=== PATIENT | female | born 1935 | race Caucasian/White ===

== ENCOUNTER → 2019-03-17 | Outpatient (CLI) | payer MEDICARE, BC ==
--- NOTE | 2019-03-17 12:03 | US ---
EXAMINATION TYPE: US venous doppler duplex LE DATE OF EXAM: 03/17/2019 10:35 AM COMPARISON: NONE CLINICAL HISTORY: M16.0 OSTEOARTHRITIS OF HIP, I80.9 PHLEBITIS AND THROMBOPHLE. SIDE PERFORMED: Bilateral TECHNIQUE: The lower extremity deep venous system is examined utilizing real time linear array sonog antonia with graded compression, doppler sonography and color-flow sonography. VESSELS IMAGED: External Iliac Vein (EIV) Common Femoral Vein Deep Femoral Vein Greater Saphenous Vein * Femoral Vein Popliteal Vein Small Saphenous Vein * Proximal Calf Veins (* superficial vessels) Grayscale, color doppler, spectral doppler imaging performed of the deep veins of the lower extremiti es. There is normal flow, compressibility, vascular waveforms. Right Leg: Negative for DVT Left Leg: Negative for DVT GSV and PTV also scanned per order. IMPRESSION: No sonographic evidence of deep venous thrombosis nor superficial venous thrombosis withi n either lower extremity.
== END | disposition home or self-care (01) ==
LOC: RADUSWWP 09:53
PROVIDERS: ATTEND Physical Medicine & Rehabilitation
DX: M48.062 Spinal stenosis, lumbar region with neurogenic claudication (principal); M51.16 Intervertebral disc disorders with radiculopathy, lumbar region; M43.16 Spondylolisthesis, lumbar region; M47.817 Spondylosis without myelopathy or radiculopathy, lumbosacral region; M16.0 Bilateral primary osteoarthritis of hip; M70.62 Trochanteric bursitis, left hip; I80.9 Phlebitis and thrombophlebitis of unspecified site; Z87.19 Personal history of other diseases of the digestive system
CPT/HCPCS: 93970

== ENCOUNTER → 2021-06-07 | Outpatient (CLI) | payer MEDICARE, BC ==
[2021-06-07 10:21] VITALS: BP 138/83; PULSE 65; RESP 18; TEMP 98.3
== END ==
LOC: PNWHC3 09:25
DX: Z53.9 Procedure and treatment not carried out, unspecified reason (principal)
CPT/HCPCS: 99211

== ENCOUNTER 2021-07-07 12:02 | Day surgery (SDC) | payer MEDICARE, BC ==
[2021-07-06 14:40] VITALS: BMI 22.8
[~2021-07-07 12:02] MED LIST: LACTATED RINGERS 1,000 ML IV SCH
[2021-07-07 12:21] VITALS: TEMP 98.3
[2021-07-07] MEDS ORDERED: LACTATED RINGERS 1,000 ML IV ONE (12:21)
[2021-07-07] MEDS ORDERED: fentaNYL (PF) 50 MCG/ML 2 ML AMP ONE (12:32)
[2021-07-07] MEDS ORDERED: MIDAZOLAM 2 MG/2 ML VIAL ONE (12:32)
[2021-07-07] MEDS ORDERED: methylPREDNISolone ACETATE 40 MG/ML 1 ML VIAL ONE (12:32)
[2021-07-07] MEDS ORDERED: ROPIVACAINE 5MG/ML 20ML VIAL ONE (12:32)
--- NOTE | 2021-07-07 12:57 | P.PCN ---
Date of Procedure: 07/07/21 Procedure(s) Performed: PREOPERATIVE DIAGNOSIS1-:1- Cervical Spondylosis with Facet Arthropathy.without myelopathy. 2-cervical degenerative disc disease POSTOPERATIVE DIAGNOSIS: Same as preoperative diagnoses. PROCEDURES: Diagnostic Bilateral C4 , C5 , and C6 medial branch blocks, with fluoroscopic guidance (fluoroscopy images available in radiology department ) ( to target the facet joint at Bilateral C4- 5 , C5- 6 )# 1st ANESTHESIA: monitered anesthesia care,as per anesthesia department. EBL: Minimal PROCEDURE INDICATION: The patient with neck pain secondary to cervical arthropathy unresponsive to more conservative treatments. PROCEDURE DESCRIPTION / TECHNIQUE: The patient was seen and identified in the preoperative area. Risks, benefits, complications, and alternatives were discussed with the patient, the patient agreed to proceed with the procedure and signed the consent. IV was started. Vital signs remained stable throughout the procedure. Patient was taken to the OR and time out was completed. The patient was placed in the prone position on the procedure table. A pillow was placed under the patients chest to increase the cervical interlaminar space. The cervical area was prepped and draped in the usual sterile fashion. Critical pause was taken. Vital signs were closely monitored during the procedure. Conscious sedation was used during the procedure to decrease patients anxiety. Using cross-table lateral fluoroscopy, the centroid of the trapezoid of right C4 , C5 and C6, was identified, marked, and localized with 1% lidocaine 1 ml at each level for skin and Sub Q infiltrations . Subsequently, a 25 G 3 spinal needle was advanced guided by fluoroscopy to the centroid of the trapezoid of Right C4 , C5, C6 . [place] tip position was confirmed at the centroid of the trapezoids of Right C4 , C5 ,C6 with anteroposterior fluoroscopy. Subsequently, 1.5 ml of preservative-free Ropivacaine 0.5% mixed with Depo- Medrol 20 mg and half ml of the mixture was injected after negative aspiration for blood and CSF. [place] was then removed intact the same procedure was repeated at the left C4 , C5 , and C6 levels. COMPLICATIONS: No acute complications. DISPOSITION / PLANS: The patient was placed in a supine position and transferred to the recovery area in a stable condition for observation and was discharged from the recovery room after meeting discharge criteria. Home discharge inst ructions given to the patient by the staff. The patient was reexamined prior to discharge. The patient will schedule a follow up in the clinic in 2-4 weeks.
[2021-07-07] MEDS ORDERED: IV FLUID CONTINUATION 1,000 ML IV ONE (13:01)
[2021-07-07 13:02] VITALS: RESP 16
[2021-07-07 13:31] VITALS: BP 137/86; PULSE 71
--- NOTE | 2021-07-07 13:37 | FL ---
Fluoroscopy HISTORY: Pain 10 seconds fluoroscopy time supplied to the referring clinician. 4 intraoperative C-arm images docum ent the procedure. See dictated report from anesthesia.
== END 2021-07-07 13:48 | disposition home or self-care (01) ==
LOC: ORPAIN 12:02
PROVIDERS: ATTEND Specialist
DX: M47.812 Spondylosis without myelopathy or radiculopathy, cervical region (principal); M50.30 Other cervical disc degeneration, unspecified cervical region; Z88.7 Allergy status to serum and vaccine; Z97.2 Presence of dental prosthetic device (complete) (partial)
CPT/HCPCS: 64490; 64491; J2250; J1030; J3010; J2795

== ENCOUNTER 2021-07-25 07:55 | Day surgery (SDC) | payer MEDICARE, BC ==
[2021-07-25] MEDS ORDERED: LACTATED RINGERS 1,000 ML IV ONE (08:48)
[2021-07-25 08:49] VITALS: RESP 16; TEMP 97.8
[2021-07-25] MEDS ORDERED: LIDOCAINE 1% (10MG/ML) FOR IV START INTRADERMA ONE (08:49)
[2021-07-25] MEDS ORDERED: fentaNYL (PF) 50 MCG/ML 2 ML AMP ONE (08:51)
[2021-07-25] MEDS ORDERED: MIDAZOLAM 2 MG/2 ML VIAL ONE (08:51)
[2021-07-25] MEDS ORDERED: methylPREDNISolone ACETATE 40 MG/ML 1 ML VIAL ONE (08:51)
[2021-07-25] MEDS ORDERED: ROPIVACAINE 5MG/ML 20ML VIAL ONE (08:51)
--- NOTE | 2021-07-25 09:17 | P.PCN ---
Date of Procedure: 07/25/21 Procedure(s) Performed: PREOPERATIVE DIAGNOSIS1-:1- Cervical Spondylosis with Facet Arthropathy.without myelopathy. 2-cervical degenerative disc disease POSTOPERATIVE DIAGNOSIS: Same as preoperative diagnoses. PROCEDURES: Diagnostic Bilateral C4 , C5 , and C6 medial branch blocks, with fluoroscopic guidance (fluoroscopy images available in radiology department ) ( to target the facet joint at Bilateral C4- 5 , C5- 6 )# 2nd ANESTHESIA= moderate sedation with Versed 2 mg and fentanyl 15 g. EBL: Minimal PROCEDURE INDICATION: The patient with neck pain secondary to cervical arthropathy unresponsive to more conservative treatments. PROCEDURE DESCRIPTION / TECHNIQUE: The patient was seen and identified in the preoperative area. Risks, benefits, complications, and alternatives were discussed with the patient, the patient agreed to proceed with the procedure and signed the consent. IV was started. Vital signs remained stable throughout the procedure. Patient was taken to the OR and time out was completed. The patient was placed in the prone position on the procedure table. A pillow was placed under the patients chest to increase the cervical interlaminar space. The cervical area was prepped and draped in the usual sterile fashion. Critical pause was taken. Vital signs were closely monitored during the procedure. Conscious sedation was used during the procedure to decrease patients anxiety. Using cross-table lateral fluoroscopy, the centroid of the trapezoid of right C4 , C5 and C6, was identified, marked, and localized with 1% lidocaine 1 ml at each level for skin and Sub Q infiltrations . Subsequently, a 25 G 3 spinal needle was advanced guided by fluoroscopy to the centroid of the trapezoid of Right C4 , C5, C6 . [place] tip position was confirmed at the centroid of the trapezoids of Right C4 , C5 ,C6 with anteroposterior fluoroscopy. Subsequently, 1.5 ml of preservative-free Ropivacaine 0.5% mixed with Depo- Medrol 20 mg and half ml of the mixture was injected after negative aspiration for blood and CSF. [place] was then removed intact the same procedure was repeated at the left C4 , C5 , and C6 levels. COMPLICATIONS: No acute complications. DISPOSITION / PLANS: The patient was placed in a supine position and transferred to the recovery area in a stable condition for observation and was discharged from the recovery room after meeting discharge criteria. Home discharge inst ructions given to the patient by the staff. The patient was reexamined prior to discharge. The patient will schedule a follow up in the clinic in 2-4 weeks.
[2021-07-25] MEDS ORDERED: IV FLUID CONTINUATION 1,000 ML IV ONE (09:22)
[2021-07-25 09:38] VITALS: BP 123/69; PULSE 70
--- NOTE | 2021-07-25 11:43 | FL ---
Fluoroscopy HISTORY: Pain 9 seconds fluoroscopy time supplied to the referring clinician. 4 intraoperative C-arm images docume nt the procedure. See dictated report from anesthesia.
== END 2021-07-25 09:56 | disposition home or self-care (01) ==
LOC: ORPAIN 07:55
PROVIDERS: ATTEND Specialist
DX: M47.812 Spondylosis without myelopathy or radiculopathy, cervical region (principal); M50.30 Other cervical disc degeneration, unspecified cervical region; Z88.1 Allergy status to other antibiotic agents
CPT/HCPCS: 64490; 64491; J2250; J1030; J3010; J2795; 99152

== ENCOUNTER → 2021-08-16 | Outpatient (CLI) | payer MEDICARE, BC ==
[2021-08-16 12:47] VITALS: BP 160/93; PULSE 71; RESP 18; TEMP 98.1
--- NOTE | 2021-08-16 13:17 | P.PN ---
Subjective Progress Note Date: 08/16/21 This is a follow-up visit for this 86 years old female with a chronic history of severe neck pain, she is diagnosed with cervical spondylosis with cervical facet arthropathy, cervical foraminal stenosis and cervical degenerative disc disease, recently we have done diagnostic medial branch block cervical area at C4 5 and C5 6 bilaterally, patient reported that she did benefit only 50% for a few hours after each block, she continued to have severe neck pain, which is increased with any neck movement, she complains of severe numbness in the cervical area, she denies any motor or sensory deficit she denies any fever or night sweats, denies any change in the bowel movement or urination Objective - Vital Signs Vital signs: Vital Signs Temp 98.1 F 08/16/21 12:40 Pulse 71 08/16/21 12:40 Resp 18 08/16/21 12:40 BP 160/93 08/16/21 12:40 Pulse Ox Intake & Output 08/15/21 08/16/21 08/16/21 18:59 06:59 18:59 Weight 56.699 kg - Exam Physical Examinations : -Constitutiona : Cooperative , not in acute distress . -HEENT : nech : supple , no Lymphadenopathy , normal thyroid size . : eyes : no ptosis , no icterus, no photophobia . - neurologic : Cranial nerve II to XII intact , no focal neurological deffecit . -psychatric : alert , oriented X 3 , appropriate affect , intact judgment and insight . -Lymphatic : no Lymphadenopathy . - musculoskeltal : Cervical Spine motor stregnth in the deltoid and biceps, normal right side , normal Left side motor stregnth biceps and the wrist extensors normal right side ,normal left side . motor stregnth in the triceps muscle . normal Right side , normal Left side deep tendon reflexes normal at the biceps , normal at Brachioradialis , normal at triceps. cervical facet loading test: Positive Bilaterally Spurling test= positive Right , positive left. Neck distraction test= positive Right , positive left. Mana sign= positive right, positive left . Lumber spine moter stegnth lower extremities ,thigh and legs 5/5 Right side , 5/5 Left side - Constitutional Constitutional Comment(s): MRI cervical spine C2 to C7 central stenosis ,and foraminal narrowing, and facet joint degeneration. Assessment and Plan Plan: Assessment and plan=1-cervical degenerative disc disease. 2-cervical foraminal stenosis. 3-cervical spondylosis with cervical facet arthropathy without myelopathy. Patient had cervical epidural steroid injections previously and [facility] [place] she reported that she had no benefit from it Patient had diagnostic medial branch block cervical area x2 she had borderline benefit. Patient will follow up with spine surgeon for evaluation for possible surgical interventions Time with Patient: Less than 30
== END ==
LOC: PNWHC3 12:22
PROVIDERS: ATTEND Specialist
DX: M50.30 Other cervical disc degeneration, unspecified cervical region (principal); M48.02 Spinal stenosis, cervical region; M47.812 Spondylosis without myelopathy or radiculopathy, cervical region; Z88.7 Allergy status to serum and vaccine
CPT/HCPCS: 99211